=== PATIENT | female | born 1980 | race Caucasian/White ===

== ENCOUNTER → 2023-04-20 10:09 | Outpatient (REF) | payer OTHER, SELFPAY | LOC: WDC 10:09 | PROVIDERS: ATTENDING PHYSICIAN Advanced Practice Midwife; FAMILY PHYSICIAN Nurse Practitioner Family | DX: Z12.31 Encounter for screening mammogram for malignant neoplasm of breast (principal) | CPT/HCPCS: 77063; 77067 ==

== ENCOUNTER → 2024-06-13 10:25 | Outpatient (REF) | payer BC, SELFPAY | LOC: WDC 10:25 | PROVIDERS: ATTENDING PHYSICIAN Obstetrics & Gynecology; FAMILY PHYSICIAN Family Medicine | DX: Z12.31 Encounter for screening mammogram for malignant neoplasm of breast (principal) | CPT/HCPCS: 77063; 77067 ==